=== PATIENT | female | born 1955 | race American Indian/Alaskan Native ===

== ENCOUNTER 2017-06-06 10:14 | Day surgery (SDC) | payer MEDICARE ==
[2017-06-05 11:58] VITALS: BMI 30.2
[2017-06-06] MEDS ORDERED: Lidocaine/Epinephrine 1% 1:100000 10 ML IJ ONE (12:57)
[2017-06-06] MEDS ORDERED: Propofol 10 mg/ml Inj (20 ML) ONE (13:04)
[2017-06-06] MEDS ORDERED: Silver Nitrate Topical - Stick ONE (13:09)
[2017-06-06] MEDS ORDERED: Lidocaine Hydrochloride 5 ML INJ ONE (14:00)
[2017-06-06] MEDS ORDERED: Oxycodone/Acetaminophen 5/325 mg Tab PO PRN (15:47)
[2017-06-06 15:53] VITALS: RESP 16
[2017-06-06 17:04] VITALS: BP 120/60; PULSE 70; TEMP 98; O2SAT 98
--- NOTE | 2017-06-07 00:02 | OP ---
PROCEDURE DATE: PREOPERATIVE DIAGNOSIS: Low-grade cervical dysplasia found on endocervical curettage during colposcopy. POSTOPERATIVE DIAGNOSIS: Low-grade cervical dysplasia found on endocervical curettage during colposcopy. PROCEDURE: Loop electrosurgical excision procedure cone biopsy. SURGEON: Cally Osborn MD TYPE OF ANESTHESIA: General. ANESTHESIA ADMINISTERED BY: Dr. Johnson. COMPLICATIONS: None. ESTIMATED BLOOD LOSS: Less than 5 mL. URINE OUTPUT: 200 mL. SPECIMENS: To Pathology. 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 INDICATION: The patient is a 62-year-old female who had presented for routine RENAL MEDICINE SPECIALIST visit. Pap smear was abnormal and colposcopic biopsy showed a endocervical curettage with low-grade squamous cervical dysplasia of scant squamous cells. The colposcopic biopsy showed acute and chronic cervicitis. An informed indications for treatment and risk of no treatment versus treatment discussed with the patient and she desired planned procedure. An informed consent was obtained for the LEEP cone biopsy. DESCRIPTION OF PROCEDURE: The patient was taken back to the OR where she was placed in the dorsal supine position and underwent a general anesthesia. She was then placed in the dorsal lithotomy position and an examine under anesthesia showed the uterus to be small and mobile. No pelvic masses palpated. The patient was then prepped and draped in the routine sterile fashion. A graves speculum was placed into the vagina and a grossly normal cervix and vagina were noted with findings consistent with genitourinary syndrome. The squamocolumnar junction was not visualized and appeared to be at or within the endocervical canal. A solution of 1% lidocaine with dilute epinephrine was injected submucosally into the area of the ectocervix at 6 o'clock, 9 o'clock, 12 o'clock, and 3 o'clock. The electrosurgical generator was set to 40 olson on blend. This was followed by the LEEP procedure of the ectocervix followed by the endocervix. Good hemostasis was achieved and the cervix was then coagulated with the ball cautery by placement of Monsel solution. The patient tolerated the procedure well and she returned to recovery room in satisfactory condition. Cally Osborn MD [facility]
== END 2017-06-06 16:35 | disposition home or self-care (01) ==
LOC: C.SDS 10:14
PROVIDERS: ATTEND Obstetrics & Gynecology
DX: N87.9 Dysplasia of cervix uteri, unspecified (principal); N72 Inflammatory disease of cervix uteri
CPT/HCPCS: 57522; 82948; J2704; J3010

== ENCOUNTER 2017-09-27 11:19 | Observation (INO) | payer MEDICARE ==
[2017-09-27 11:20] VITALS: BMI 27.3
--- NOTE | 2017-09-27 14:06 | C.PDOC ---
History Of Present Illness 62 y/o female presents to the ED for evaluation of left eye visual disturbance associated with intermittent headaches. Of note patient is a poor historian, and was seen at [facility] 2 days ago. She states she was supposed to be admitted for an MRI to address questionable neurological pathology. Patient signed out AMA and is now requesting to have the MRI/admission here. Denies headache at this time. Also denies any chest pain, SOB, nausea, vomiting, fever, or other complaints. PMD: Pedro Gaytan Time Seen by Provider: 09/27/17 12:42 Chief Complaint (Nursing): Eye Problem History Per: Patient History/Exam Limitations: no limitations Onset/Duration Of Symptoms: Intermittent Episodes Current Symptoms Are (Timing): Still Present Past Medical History Reviewed: Historical Data, Nursing Documentation, Vital Signs Vital Signs: Last Vital Signs Temp 98.8 F 09/28/17 08:44 Pulse 70 09/28/17 08:44 Resp 20 09/28/17 08:44 BP 127/83 09/28/17 08:44 Pulse Ox 98 09/28/17 08:44 - Medical History PMH: Arthritis, HTN, Chronic Kidney Disease Surgical History: Endoscopy Family History: States: Unknown Family Hx - Social History Hx Alcohol Use: No Hx Substance Use: No - Immunization History Hx Tetanus Toxoid Vaccination: No Hx Influenza Vaccination: Yes Hx Pneumococcal Vaccination: No Review Of Systems Except As Marked, All Systems Reviewed And Found Negative. Eyes: Positive for: Vision Change Neurological: Positive for: Headache Physical Exam - Physical Exam Appears: Non-toxic, No Acute Distress Skin: Normal Color, Warm, Dry Head: Atraumatic, Normacephalic Eye(s): bilateral: Normal Inspection (fundoscopic exam is normal bilaterally, no gross abnormality), PERRL, EOMI Nose: Normal Oral Mucosa: Moist Neck: Normal ROM, Supple Cardiovascular: Rhythm Regular, No Murmur Respiratory: Normal Breath Sounds, No Rales, No Rhonchi, No Wheezing Back: Normal Inspection, No Vertebral Tenderness Extremity: Bilateral: Atraumatic, Normal Color And Temperature, Normal ROM Pulses: Left Dorsalis Pedis: Normal, Right Dorsalis Pedis: Normal Neurological/Psych: Oriented x3, Normal Speech, Normal Cranial Nerves, Normal Motor, Normal Sensation, Other (No focal deficits) Gait: Steady ED Course And Treatment - Laboratory Results Result Diagrams: 09/28/17 07:40 09/28/17 07:40 O2 Sat by Pulse Oximetry: 97 (RA) Pulse Ox Interpretation: Normal - CT Scan/US MRI Brain Other Rad Studies (CT/US): Read By Radiologist, Radiology Report Reviewed CT/US Interpretation: Accession No. : [id number]. Patient Name / ID : INES MARTIN / [id number]. Exam Date : 09/27/2017 15:32:26 ( Approved ). Study Comment : Sex / Age : F / [id number]. Creator : Christa Sevilla. Dictator : Nelia Jones MD. Tortilla Maker : Molder Trimmer : Nelia Jones MD. Approver2 : Report Date : 09/27/2017 15:48:15. My Comment : . PROCEDURE: MRI BRAIN WITHOUT CONTRAST. HISTORY: visual disturbance. COMPARISON: 06/16/2016. TECHNIQUE: Multiplanar, multisequence MR images of the brain were obtained without intravenous contrast enhancement. FINDINGS: HEMORRHAGE: None. DWI: No evidence of an acute or early subacute infarction. BRAIN PARENCHYMA: There are mild chronic microangiopathic changes. There is no mass, mass effect or abnormal extra-axial fluid collection. The midline sagittal structures are normal. VENTRICLES: There is mild age-related global parenchymal volume loss and proportionate enlargement of the ventricles and cortical sulci. CRANIUM: There is normal bone marrow signal. ORBITS: Grossly unremarkable. PARANASAL SINUSES/MASTOIDS: Pattern predominantly clear. VASCULAR SYSTEM: There are normal signal voids in the larger intracranial arteries. OTHER FINDINGS: None. IMPRESSION: No acute intracranial abnormality. Mild chronic microangiopathic changes and mild age-related global parenchymal volume loss. Medical Decision Making Medical Decision Making: Case discussed w/ Dr. Gaytan, who requests patient be admitted to his service with neuro and ophthalmologic consults. Impression: Visual disturbance Plan: * CBC * CMP * Troponin I * EKG * MRI Brain w/o contrast * Pt signed consent to have [facility] records sent. Labs reviewed: (+) trop EKG: NSR at 66 bpm, with R BBB, Q wave in lead 3 and aVF Unchanged from EKG on 07/29 Disposition Discussed With : Pedro Gaytan Doctor Will See Patient In The: Hospital Counseled Patient/Family Regarding: Studies Performed, Diagnosis - Disposition Disposition: HOSPITALIZED Disposition Time: 14:06 Condition: FAIR - POA Present On Arrival: None - Clinical Impression Clinical Impression: Visual disturbance, NSTEMI (non-ST elevated myocardial infarction) - Scribe Statement The provider has reviewed the documentation as recorded by the Scribe (Sandrita Reddy) Provider Attestation: All medical record entries made by the Scribe were at my direction and personally dictated by me. I have reviewed the chart and agree that the record accurately reflects my personal performance of the history, physical exam, medical decision making, and the department course for this patient. I have also personally directed, reviewed, and agree with the discharge instructions and disposition.
[2017-09-27 14:26] LABS: BASO % 0.5 % (0.0-2.0); EOS % 0.5 % (0.0-4.0); HEMOGLOBIN 10.1 g/dL (11.0-16.0); LYMPH % 34.9 % (20.0-40.0); MEAN CELL VOLUME 78.8 fL (81.0-99.0); MEAN CORPUSCULAR HEMOGLOBIN 25.8 pg (27.0-31.0); MEAN CORPUSCULAR HGB CONC 32.8 g/dL (33.0-37.0); MEAN PLATELET VOLUME 7.1 fL (7.2-11.7); MONO # 0.6 K/uL (0.0-0.8); MONO % 10.4 % (0.0-10.0); NEUT # 3.1 K/uL (1.8-7.0); NEUT % 53.7 % (50.0-75.0); RBC 3.9 Mil/uL (3.80-5.20); RED CELL DISTRIBUTION WIDTH 14.7 % (11.5-14.5); WHITE BLOOD COUNT 5.8 K/uL (4.8-10.8)
[2017-09-27 14:45] LABS: ALB/GLOB RATIO 1.1 (1.0-2.1); ALBUMIN 4.3 g/dL (3.5-5.0); ALT/SGPT 10 U/L (9-52); AST/SGOT 27 U/L (14-36); BLOOD UREA NITROGEN 9 mg/dL (7-17); CALCIUM 8.7 mg/dl (8.6-10.4); GFR AFRICAN-AMERICAN > 60; GFR NON-AFRICAN AMERICAN > 60
--- NOTE | 2017-09-27 16:02 | MRI ---
PROCEDURE: MRI BRAIN WITHOUT CONTRAST HISTORY: visual disturbance COMPARISON: 06/16/2016. TECHNIQUE: Multiplanar, multisequence MR images of the brain were obtained without intravenous contrast enhancement. FINDINGS: HEMORRHAGE: None DWI: No evidence of an acute or early subacute infarction. BRAIN PARENCHYMA: There are mild chronic microangiopathic changes. There is no mass, mass effect or abnormal extra-axial fluid collection. The midline sagittal structures are normal. VENTRICLES: There is mild age-related global parenchymal volume loss and proportionate enlargement of the ventricles and cortical sulci. CRANIUM: There is normal bone marrow signal. ORBITS: Grossly unremarkable. PARANASAL SINUSES/MASTOIDS: Pattern predominantly clear. VASCULAR SYSTEM: There are normal signal voids in the larger intracranial arteries. OTHER FINDINGS: None. IMPRESSION: No acute intracranial abnormality. Mild chronic microangiopathic changes and mild age-related global parenchymal volume loss.
--- NOTE | 2017-09-27 16:36 | CP.PCM.PN ---
Subjective - Date & Time of Evaluation Date of Evaluation: 09/27/17 Time of Evaluation: 16:29 - Subjective Subjective: PGY-[address] Gaytan's Service: Pt seen and examined at bedside in Fast Track Bed 2. Patient states she still sees "same purple spot in left visual field." She denies headache at this time. Patient admits she had substernal "burning" chest pain "two weeks ago" that went away "a day later and has not returned." Patient reports she has noticed increased swelling in her legs over past few days, but denies sleeping with increased pillows/decreased exertion tolerance. She denies facial droop, weakness, slurred speech, syncope, falls, chest pain, SOB, palpitations, or abdominial pain. Patient is a 62 year old female, with PMHX of Cervical CA, Glaucoma, T2DM, MARA, Hepatitis C, OA/RA, Sarcoidosis, presenting for visual disturbance. Patient reports last monday she noticed "purple spot" in corner of vision of left eye. Pt pursued work [place] [facility]. Reports getting CT head and labwork (which pt says [facility] told her was inconclusive). She was told to stay overnight and have MRI monday morning but left AMA. Patient reports she has persistently seen this purple spot this week and now wants the MRI. She denies facial droop, weakness, slurred speech, syncope, falls, chest pain, SOB, palpitations, or abdominial pain. 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 She states she had cardiac catheterization 5 years ago. PMHX: as above PSHx: Colposcopy? (2018), Hx gastric bypass Fam Hx: denies Allergies: honey/sulfa antibiotics (rash) SHx: denies tobacco, occasional EtOH, denies illicit drugs Objective - Vital Signs/Intake and Output Vital Signs (last 24 hours): Temp Pulse Resp BP Pulse Ox 98.7 F 67 16 121/78 97 09/27/17 13:19 09/27/17 16:04 09/27/17 16:04 09/27/17 16:04 09/27/17 16:20 - Labs Labs: 09/27/17 14:20 09/27/17 14:20 - Constitutional Appears: Non-toxic, No Acute Distress, Older Than Stated Age - Head Exam Head Exam: ATRAUMATIC, NORMAL INSPECTION - Eye Exam Eye Exam: EOMI, Normal appearance, Nystagmus (right lateral gaze), PERRL - ENT Exam ENT Exam: Normal Exam - Neck Exam Neck Exam: Normal Inspection - Respiratory Exam Respiratory Exam: Clear to Ausculation Bilateral, NORMAL BREATHING PATTERN - Cardiovascular Exam Cardiovascular Exam: REGULAR RHYTHM, +S1, +S2. absent: Murmur - GI/Abdominal Exam GI & Abdominal Exam: Soft, Normal Bowel Sounds. absent: Tenderness - Extremities Exam Extremities Exam: Normal Capillary Refill, Pedal Edema (1+ pitting) - Back Exam Back Exam: absent: CVA tenderness (L), CVA tenderness (R) - Neurological Exam Neurological Exam: Alert, Awake, Oriented x3 Neuro motor strength exam: Left Upper Extremity: 5, Right Upper Extremity: 5, Left Lower Extremity: 5, Right Lower Extremity: 5 Additional comments: No facial droop, slurred speech Negative Romberg Light touch intact globally - Psychiatric Exam Psychiatric exam: Normal Mood - Skin Skin Exam: Dry, Intact, Warm Assessment and Plan - Assessment and Plan (Free Text) Plan: Elevated troponins Admit to tele Initial troponin 0.1350 - f/u two additional Q6H EKG (09/27/17): Unchanged from prior - NSR @ 66 bpm, RBBB, ST segment depression in lead II, Q waves in III/AVF - f/u two additional EKGs Dr. Garcia, tour consultant, help greatly appreciated - No anticoagulation at this time due to concern of CVA - Antiplatelets - ASA/Plavix - f/u additional reccs ASA 325g PO once in ED -ASA 81mg PO Daily Plavix 75mg PO Daily Losartan 100mg PO Daily Consider adding BB f/u BNP, two additional ROMIs/EKGs, ECHO Visual disturbance/? Occipital hyperdensity Pt worked up [place] [facility] [place] (09/24/17) - left AMA Fall risk protocol Brain MRI (09/27/17): No acute intracranial abnormality. Mild chronic microangiopathic changes and mild-age related global parenchymal volume loss. Dr. Garcia, Neurology managed services consultant - Conferred with Radiologist, Dr. Villegas, possible occipital venous stasis - start ASA 81mg PO daily - f/u repeat MRI brain, MRA/MRV Brain/Head/Neck - f/u Lipid panel, HbA1c, B12, folate, TSH, Vitamin D level, AYANNA level, Hypercoagulable work-up Pitting B/l leg edema Albumin WNL f/u BNP, ECHO T2DM Accuchecks ACHS Hypoglycemia protocol Metformin 500mg PO Daily MISS f/u A1C Continue home Losartan 100mg PO Daily Start Crestor 10mg PO HS HTN well controlled Losartan 100mg PO Daily Norvasc 10mg PO daily Sarcoidosis Continue Prednisone 10mg PO Daily - pt states she has adrenal insufficiency because she "has been on for years" Hx of Hep C AST/ALT WNL Unclear if patient treated f/u hepatitis panel Cervical CA Diagnosed 2018 Patient reports having recent procedure for removal of part of cervix Chronic Pain - Spinal stenosis Fentanyl 75mg TD Patch Q72H Percocet Colace 100mg PO BID Anxiety Xanax 0.25mg PO Q6H for anxiety Obesity Low fat, 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 Gaytan
[2017-09-27] MEDS ORDERED: Oxycodone/Acetaminophen 5/325 mg Tab PO PRN (17:30)
[2017-09-27] MEDS ORDERED: Dextrose 50% SYRINGE Inj (50 ml) IV PRN (17:55)
[2017-09-27] MEDS ORDERED: Glucagon Recombinant 1 mg Inj IM PRN (17:55)
--- NOTE | 2017-09-27 18:09 | CP.PCM.CON ---
History of Present Illness - History of Present Illness History of Present Illness: Mrs. Zhang is a 62-year-old woman with a past medical history of cervical cancer, morbid obesity s/p gastric bypass, sarcoidosis, DM, migratory thrombophlebitis, who states that for the past several days she has noticed a right eye upper visual quadrant loss of vision and right facial strange sensation. MRI of the brain was done and there was a subtle right occipital hyperintensity that could be an area of venous stasis. Review of Systems - Review of Systems All systems: reviewed and no additional remarkable complaints except Past Patient History - Past Medical History & Family History Past Medical History?: Yes - Past Social History Smoking Status: Never Smoked - CARDIAC Hx Hypertension: Yes - PULMONARY Hx Respiratory Disorders: Yes Other/Comment: HX: SARCOIDOSIS - HEENT Hx HEENT Problems: Yes Hx Glaucoma: Yes ("BEGINNING STAGES") - RENAL Hx Chronic Kidney Disease: Yes - ENDOCRINE/METABOLIC Hx Endocrine Disorders: Yes Hx Diabetes Mellitus Type 2: Yes - HEMATOLOGICAL/ONCOLOGICAL Hx Blood Disorders: Yes Hx Cancer: Yes (HX: ABNORMAL PAP-?CERVICAL CANCER) - MUSCULOSKELETAL/RHEUMATOLOGICAL Hx Arthritis: Yes - GASTROINTESTINAL Hx Gastrointestinal Disorders: Yes Other/Comment: HX: GASTRIC BYPASS. HX: LBM-POST GASTRIC BYPASS - GENITOURINARY/GYNECOLOGICAL Hx Genitourinary Disorders: Yes Hx Cervical Cancer: Yes (2018) Other/Comment: HX: ABNORMAL PAP - PSYCHIATRIC Hx Substance Use: No - SURGICAL HISTORY Hx Surgeries: Yes Hx Gastric Bypass Surgery: Yes Other/Comment: HX: ETOPIC [id number] REMOVED. HX: RIGHT OVARIAN CYST- CYST REMOVED. - ANESTHESIA Hx Anesthesia: Yes Hx Anesthesia Reactions: No Hx Malignant Hyperthermia: No Meds Allergies/Adverse Reactions: Allergies Allergy/AdvReac Type Severity Reaction Status Date / Time honey Allergy Severe ANAPHYLAXIS Verified 09/27/17 11:44 Sulfa (Sulfonamide Allergy Severe ANAPHYLAXIS Verified 09/27/17 11:47 Antibiotics) - Medications Medications: Current Medications Alprazolam (Xanax) 0.25 mg PO Q6H PRN PRN Reason: Anxiety Stop: 10/04/17 20:01 Amlodipine Besylate (Norvasc) 10 mg PO DAILY [facility] Aspirin (Ecotrin) 81 mg PO DAILY [facility] Dextrose (Dextrose 50% Inj) 0 ml IV STAT PRN; Protocol PRN Reason: Hypoglycemia Protocol Dextrose (Glutose 15) 0 gm PO ONCE PRN; Protocol PRN Reason: Hypoglycemia Protocol Fentanyl (Duragesic) 1 patch TD Q72 [facility] Glucagon (Glucagen Diagnostic Kit) 0 mg IM STAT PRN; Protocol PRN Reason: Hypoglycemia Protocol Home Med (Acetaminophen/Oxycodone Hydr [Percocet 10/325 Mg Tab]) 1 tab PO Q6 PRN PRN Reason: Pain, moderate (4-7) Dextrose (Dextrose 5% In Water 1000 Ml) 1,000 mls @ 0 mls/hr IV .Q0M PRN; Protocol; Per Protocol PRN Reason: Hypoglycemia Protocol Insulin Human Regular (Novolin R) 0 unit SC ACHS [facility] PRN Reason: Protocol Losartan Potassium (Cozaar) 100 mg PO DAILY [facility] Metformin HCl (Glucophage) 500 mg PO DAILY [facility] Prednisone (Prednisone Tab) 10 mg PO HS [facility] Physical Exam - Neurological Exam Neurological exam: Abnormal Gait, Alert, CN II-XII Intact, Oriented x3, Reflexes Normal Additional comments: Nystagmus on right lateral gaze. Results - Vital Signs Recent Vital Signs: Last Vital Signs Temp 98.7 F 09/27/17 13:19 Pulse 67 09/27/17 17:26 Resp 16 09/27/17 17:26 BP 142/70 09/27/17 17:26 Pulse Ox 100 09/27/17 17:26 - Labs Result Diagrams: 09/27/17 14:20 09/27/17 14:20 Labs: Laboratory Results - last 24 hr 09/27/17 09/27/17 14:20 14:20 WBC 5.8 RBC 3.90 Hgb 10.1 L Hct 30.7 L MCV 78.8 L MCH 25.8 L MCHC 32.8 L RDW 14.7 H Plt Count 214 MPV 7.1 L Neut % (Auto) 53.7 Lymph % (Auto) 34.9 Motley % (Auto) 10.4 H Eos % (Auto) 0.5 Baso % (Auto) 0.5 Neut # (Auto) 3.1 Lymph # (Auto) 2.0 Motley # (Auto) 0.6 Eos # (Auto) 0.0 Baso # (Auto) 0.0 Sodium 141 Potassium 3.8 Chloride 101 Carbon Dioxide 29 Anion Gap 15 BUN 9 Creatinine 0.7 Est GFR ( Amer) > 60 Est GFR (Non-Af Amer) > 60 Random Glucose 78 Calcium 8.7 Total Bilirubin 0.6 AST 27 ALT 10 Alkaline Phosphatase 58 Troponin I 0.1350 H* Total Protein 8.2 Albumin 4.3 Globulin 3.9 Albumin/Globulin Ratio 1.1 Assessment & Plan - Assessment and Plan (Free Text) Assessment: Visual field deficit of right eye could be due to retinal artery involvement. The lesion on the MRI could be due to either a stroke or a venous thrombus. She may be hypercoagulable due to recent cervical cancer and surgery. She also has a history of sarcoid and takes chronic steroids, which increase risk of stroke along with diabetes. Plan: I recommend obtaining a repeat MRI and an MRA/MRV for further evaluation. In the mean time, we will start her on aspirin 81 mg daily. Furthermore, I recommend the followin. Telemetry 2. Echocardiogram 3. Hypercoagulable work-up 4. Lipid panel, HbA1c, B12, folate, TSH, Vitamin D level, AYANNA level 5. PT/OT eval and treat Thank you.
[2017-09-27 19:29] VITALS: RESP 20
[2017-09-27] MEDS ORDERED: Oxycodone/Acetaminophen 5/325 mg Tab ONE (19:54)
[2017-09-27 22:09] LABS: CK-MB 0.76 ng/mL (0.0-3.38); TROPONIN I 0.111 ng/mL (0.00-0.120)
[2017-09-27] MEDS: (Novolin R) Insulin Human Regular 100 units/ml vial SC SCH (22:19)
[2017-09-28] MEDS: Oxycodone/Acetaminophen 5/325 mg Tab PO PRN ×2 (01:21→07:01)
[2017-09-28] MEDS: oxyCODONE 5 mg Immediate Release Tab PO PRN ×2 (01:21→07:00)
[2017-09-28 02:30] LABS: CK-MB 0.81 ng/mL (0.0-3.38); TROPONIN I 0.107 ng/mL (0.00-0.120)
[2017-09-28] MEDS ORDERED: Magnesium Sulfate 1 gm in D5W 1 GM/100 ML BAG IVPB SCH ×2 (07:45→08:45)
--- NOTE | 2017-09-28 07:50 | CP.PCM.PN ---
Subjective - Date & Time of Evaluation Date of Evaluation: 09/28/17 Time of Evaluation: 07:46 - Subjective Subjective: Ms. Zhong was seen and examined at the bedside. She is alert, oriented in all spheres. She claims of headache in her right periorbital area radiating to the temporal area, pain is describe as throbbing with pain scale 6/10. She further claims of having a blank or blurry area in her right upper quadrant of her eye. She claims of clear vision with eye movement to the right periphery. She denies any dizziness, lightheadedness, nausea, or vomiting. She is able to follow simple commands. She request of an anxiolytic prior to MRI. There was no untoward events overnight. Objective - Vital Signs/Intake and Output Vital Signs (last 24 hours): Temp Pulse Resp BP Pulse Ox 98.5 F 67 20 137/72 97 09/28/17 04:10 09/28/17 04:10 09/28/17 04:10 09/28/17 04:10 09/28/17 04:10 - Medications Medications: Current Medications Alprazolam (Xanax) 0.25 mg PO Q6H PRN PRN Reason: Anxiety Stop: 10/04/17 20:01 Amlodipine Besylate (Norvasc) 10 mg PO DAILY [facility] Aspirin (Ecotrin) 81 mg PO DAILY [facility] Calcium/Vitamin D (Oyster Shell Calcium/Vitamin D 500 Mg-200 Iu) 1 tab PO DAILY [facility] Dextrose (Dextrose 50% Inj) 0 ml IV STAT PRN; Protocol PRN Reason: Hypoglycemia Protocol Dextrose (Glutose 15) 0 gm PO ONCE PRN; Protocol PRN Reason: Hypoglycemia Protocol Docusate Sodium (Colace) 100 mg PO BID [facility] Fentanyl (Duragesic) 1 patch TD Q72 [facility] Glucagon (Glucagen Diagnostic Kit) 0 mg IM STAT PRN; Protocol PRN Reason: Hypoglycemia Protocol Dextrose (Dextrose 5% In Water 1000 Ml) 1,000 mls @ 0 mls/hr IV .Q0M PRN; Protocol; Per Protocol PRN Reason: Hypoglycemia Protocol Magnesium Sulfate/Dextrose (Magnesium Sulfate 1 Gm/100 Ml D5w) 1 gm in 100 mls @ 300 mls/hr IVPB Q30M [facility] Stop: 09/28/17 08:34 Insulin Human Regular (Novolin R) 0 unit SC ACHS [facility] PRN Reason: Protocol Last Admin: 09/27/17 22:19 Dose: Not Given Losartan Potassium (Cozaar) 100 mg PO DAILY [facility] Metformin HCl (Glucophage) 500 mg PO DAILY [facility] Oxycodone HCl (Oxycodone Immediate Release Tab) 5 mg PO Q6 PRN PRN Reason: Pain, moderate (4-7) Last Admin: 09/28/17 07:00 Dose: 5 mg Oxycodone/Acetaminophen (Percocet 5/325 Mg Tab) 1 tab PO Q6 PRN PRN Reason: Pain, moderate (4-7) Last Admin: 09/28/17 07:01 Dose: 1 tab Prednisone (Prednisone Tab) 10 mg PO HS [facility] Last Admin: 09/27/17 23:05 Dose: 10 mg Rosuvastatin Calcium (Crestor) 10 mg PO HS [facility] Last Admin: 09/27/17 23:05 Dose: 10 mg - Labs Labs: 09/27/17 14:20 09/27/17 14:20 - Constitutional Appears: No Acute Distress - Eye Exam Pupil Exam: PERRL - Neurological Exam Neurological Exam: Alert, Awake, Oriented x3 Neuro motor strength exam: Left Upper Extremity: 5, Right Upper Extremity: 5, Left Lower Extremity: 5, Right Lower Extremity: 5 Additional comments: Alert, oriented, follows commands. She further claims of having a blank or blurry area in her right upper quadrant of her eye. She claims of clear vision with eye movement to the right periphery. Assessment and Plan (1) Visual disturbance Assessment & Plan: Case discussed with Dr. Garcia, continue all current medical regimen. Pending MRa / MRV of the head and neck, echocardiogram, hypercoagulability studies. Recommend head of bed elevated, normotension to maintain brain perfusion. Status: Acute (2) Headache Assessment & Plan: Case discussed with Dr. Garcia, recommend magnesium 2 gms IVPB for one dose only. This is for headache not to supplement magnesium level. Status: Acute
[2017-09-28 08:02] LABS: BASO % 0.3 % (0.0-2.0); EOS % 0.1 % (0.0-4.0); HEMOGLOBIN 9.9 g/dL (11.0-16.0); LYMPH # 1.1 K/uL (1.0-4.3); LYMPH % 22.4 % (20.0-40.0); MEAN CELL VOLUME 78.1 fL (81.0-99.0); MEAN CORPUSCULAR HEMOGLOBIN 25.8 pg (27.0-31.0); MEAN PLATELET VOLUME 7.5 fL (7.2-11.7); MONO # 0.3 K/uL (0.0-0.8); MONO % 6.8 % (0.0-10.0); NEUT # 3.4 K/uL (1.8-7.0); NEUT % 70.4 % (50.0-75.0); RBC 3.84 Mil/uL (3.80-5.20); RED CELL DISTRIBUTION WIDTH 14.5 % (11.5-14.5); WHITE BLOOD COUNT 4.8 K/uL (4.8-10.8)
[2017-09-28] MEDS: (Novolin R) Insulin Human Regular 100 units/ml vial SC SCH ×2 (08:03→11:55)
[2017-09-28 08:07] LABS: INR 1.1; PROTHROMBIN TIME 11.7 SECONDS (9.7-12.2)
[2017-09-28 08:20] LABS: ALB/GLOB RATIO 1.1 (1.0-2.1); ALBUMIN 3.9 g/dL (3.5-5.0); ALT/SGPT 14 U/L (9-52); AST/SGOT 28 U/L (14-36); BLOOD UREA NITROGEN 10 mg/dL (7-17); CALCIUM 8.8 mg/dl (8.6-10.4); GFR AFRICAN-AMERICAN > 60; GFR NON-AFRICAN AMERICAN > 60; HDL CHOLESTEROL 70 mg/dL (30-70)
[2017-09-28 08:22] LABS: LDL CHOLESTEROL 45 mg/dL (0-129)
[2017-09-28 08:39] LABS: HEPATITIS B SURFACE AG Negative (NEGATIVE)
[2017-09-28 08:45] LABS: HEPATITIS A IGM NEGATIVE (NEGATIVE); HEPATITIS B CORE AB NEGATIVE (NEGATIVE)
[2017-09-28 08:48] VITALS: TEMP 98.8
[2017-09-28 09:28] LABS: FOLATE 11.6 ng/mL
[2017-09-28] MEDS ORDERED: Calcium-Vit D 500 mg-200 Units Tab UD PO SCH (10:00)
[2017-09-28 10:23] VITALS: O2SAT 97
--- NOTE | 2017-09-28 11:06 | CP.PCM.CON ---
History of Present Illness - History of Present Illness History of Present Illness: I was asked t see patient by Dr Gaytan. Patient is a 62 year old female with PMH HTN, CAD, hypercholesterolemia who presents with visual disturbances. The patient has noted decrease in visual acuity of the right eye and a visual field defect. She was initally admitted to [facility] but signed out. She has had persistent symtpoms and a headache. She is referred for furtehr evaluation. Initial cardiac enzyme is negative. Review of Systems - Constitutional Constitutional: absent: As Per HPI, Anorexia, Chills, Daytime Sleepiness, Excessive Sweating, Fatigue, Fever, Frequent Falls, Headache, Increased Appetite , Lethargy, Malaise, Night Sweats, Snoring, Sleep Apnea, Weight Gain, Weight Loss, Weakness, Other - EENT Eyes: Loss of Peripheral Vision, Spots in Vision Ears: absent: As Per HPI, Decreased Hearing, Ear Discharge, Ear Pain, Tinnitus, Abnormal Hearing, Disequilibrium, Dizziness, Other Nose/Mouth/Throat: absent: As Per HPI, Epistaxis, Nasal Congestion, Nasal Discharge, Nasal Obstruction, Nasal Trauma, Nose Pain, Post Nasal Drip, Sinus Pain, Sinus Pressure, Bleeding Gums, Change in Voice, Dental Pain, Dry Mouth, Dysphagia, Halitosis, Hoarsness, Lip Swelling, Mouth Lesions, Mouth Pain, Odynophagia, Sore Throat, Throat Swelling, Tongue Swelling, Facial Pain, Neck Pain, Neck Mass, Other - Cardiovascular Cardiovascular: Dyspnea - Respiratory Respiratory: absent: As Per HPI, Cough, Dyspnea, Hemoptysis, Dyspnea on Exertion , Wheezing, Snoring, Stridor, Pain on Inspiration, Chest Congestion, Excessive Mucous Production, Change in Mucous Color, Pain with Coughing, Other - Gastrointestinal Gastrointestinal: absent: As Per HPI, Abdominal Pain, Belching, Bloating, Change in Bowel Habits, Change in Stool Character, Coffee Ground Emesis, Constipation, Cramping, Diarrhea, Dyspepsia, Dysphagia, Early Satiety, Excessive Flatus, Fecal Incontinence, Heartburn, Hematemesis, Hematochezia, Loose Stools, Melena, Nausea, Odynophagia, Temesmus, Vomiting, Other - Genitourinary Genitourinary: absent: As Per HPI, Change in Urinary Stream, Difficulty Urinating, Dysuria, Flank Pain, Hematuria, Pyuria, Nocturia, Urinary Incontinence, Urinary Frequency, Urinary Hesitance, Urinary Urgency, Voiding Freq/Small Amts, Freq UTI, Hx Renal/Bladder Calculi, Hx /Renal Surgery, Bladder Distension, Other - Musculoskeletal Musculoskeletal: absent: As Per HPI, Abnormal Gait, Arthralgias, Atrophy, Back Pain, Deformity, Joint Swelling, Limited Range of Motion, Loss of Height, Muscle Cramps, Muscle Weakness, Myalgias, Neck Pain, Numbness, Radiating Pain into Limb, Stiffness, Tingling, Other - Integumentary Integumentary: absent: As Per HPI, Acne, Alopecia, Bleeding Lesions, Change in Hair, Change in Nails, Change in Pigmentation, Changing Lesions, Dry Skin, Erythema, Furuncle, Hirsutism, Lesions, New Lesions, Non-Healing Lesions, Photosensitivity, Pruritus, Rash, Skin Pain, Skin Ulcer, Sores, Striae, Swelling , Unusual Bruising, Wounds, Jaundice, Other - Neurological Neurological: absent: As Per HPI, Abnormal Gait, Abnormal Hearing, Abnormal Movements, Abnormal Speech, Behavioral Changes, Burning Sensations, Confusion, Convulsions, Disequilibrium, Dizziness, Numbness, Focal Weakness, Frequent Falls , Headaches, Lack of Coordination, Loss of Vision, Memory Loss, Paresthesias, Radicular Pain, Restless Legs, Sensory Deficit, Syncope, Tingling, Tremor, Vertigo, Weakness, Other Visual Disturbances, Other - Psychiatric Psychiatric: absent: As Per HPI, Abnormal Sleep Pattern, Anhedonia, Anxiety, Auditory Hallucinations, Behavioral Changes, Change in Appetite, Change in Libido, Confusion, Depression, Difficulty Concentrating, Hallucinations, Homicidal Ideation, Hopelessness, Irritability, Memory Loss, Mood Swings, Panic Attacks, Paranoia, Suicidal Ideation, Visual Hallucinations, Tactile Hallucinations, Other - Endocrine Endocrine: absent: As Per HPI, Change in Body Appearance, Change in Libido, Cold Intolorance, Deepening of Voice, Excessive Sweating, Fatigue, Flushing, Heat Intolorance, Increase in Ring/Shoe/Hat Size, Palpitations, Polydipsia, Polyphagia, Polyuria, Other - Hematologic/Lymphatic Hematologic: absent: As Per HPI, Easy Bleeding, Easy Bruising, Lymphadenopathy, Other Past Patient History - Past Medical History & Family History Past Medical History?: Yes - Past Social History Smoking Status: Never Smoked - CARDIAC Hx Hypertension: Yes - PULMONARY Hx Respiratory Disorders: Yes Other/Comment: HX: SARCOIDOSIS - HEENT Hx HEENT Problems: Yes Hx Glaucoma: Yes ("BEGINNING STAGES") - RENAL Hx Chronic Kidney Disease: Yes - ENDOCRINE/METABOLIC Hx Endocrine Disorders: Yes Hx Diabetes Mellitus Type 2: Yes - HEMATOLOGICAL/ONCOLOGICAL Hx Blood Disorders: Yes Hx Cancer: Yes (HX: ABNORMAL PAP-?CERVICAL CANCER) - MUSCULOSKELETAL/RHEUMATOLOGICAL Hx Arthritis: Yes - GASTROINTESTINAL Hx Gastrointestinal Disorders: Yes Other/Comment: HX: GASTRIC BYPASS. HX: LBM-POST GASTRIC BYPASS - GENITOURINARY/GYNECOLOGICAL Hx Genitourinary Disorders: Yes Hx Cervical Cancer: Yes (2018) Other/Comment: HX: ABNORMAL PAP - PSYCHIATRIC Hx Substance Use: No - SURGICAL HISTORY Hx Surgeries: Yes Hx Gastric Bypass Surgery: Yes Other/Comment: HX: ETOPIC [id number] REMOVED. HX: RIGHT OVARIAN CYST- CYST REMOVED. - ANESTHESIA Hx Anesthesia: Yes Hx Anesthesia Reactions: No Hx Malignant Hyperthermia: No Meds Allergies/Adverse Reactions: Allergies Allergy/AdvReac Type Severity Reaction Status Date / Time honey Allergy Severe ANAPHYLAXIS Verified 09/27/17 11:44 Sulfa (Sulfonamide Allergy Severe ANAPHYLAXIS Verified 09/27/17 11:47 Antibiotics) - Medications Medications: Current Medications Alprazolam (Xanax) 0.25 mg PO Q6H PRN PRN Reason: Anxiety Stop: 10/04/17 20:01 Last Admin: 09/28/17 09:11 Dose: 0.25 mg Amlodipine Besylate (Norvasc) 10 mg PO DAILY [facility] Aspirin (Ecotrin) 81 mg PO DAILY [facility] Calcium/Vitamin D (Oyster Shell Calcium/Vitamin D 500 Mg-200 Iu) 1 tab PO DAILY [facility] Dextrose (Dextrose 50% Inj) 0 ml IV STAT PRN; Protocol PRN Reason: Hypoglycemia Protocol Dextrose (Glutose 15) 0 gm PO ONCE PRN; Protocol PRN Reason: Hypoglycemia Protocol Docusate Sodium (Colace) 100 mg PO BID [facility] Fentanyl (Duragesic) 1 patch TD Q72 [facility] Glucagon (Glucagen Diagnostic Kit) 0 mg IM STAT PRN; Protocol PRN Reason: Hypoglycemia Protocol Dextrose (Dextrose 5% In Water 1000 Ml) 1,000 mls @ 0 mls/hr IV .Q0M PRN; Protocol; Per Protocol PRN Reason: Hypoglycemia Protocol Insulin Human Regular (Novolin R) 0 unit SC ACHS [facility] PRN Reason: Protocol Last Admin: 09/28/17 08:03 Dose: Not Given Losartan Potassium (Cozaar) 100 mg PO DAILY [facility] Metformin HCl (Glucophage) 500 mg PO DAILY [facility] Oxycodone HCl (Oxycodone Immediate Release Tab) 5 mg PO Q6 PRN PRN Reason: Pain, moderate (4-7) Last Admin: 09/28/17 07:00 Dose: 5 mg Oxycodone/Acetaminophen (Percocet 5/325 Mg Tab) 1 tab PO Q6 PRN PRN Reason: Pain, moderate (4-7) Last Admin: 09/28/17 07:01 Dose: 1 tab Prednisone (Prednisone Tab) 10 mg PO HS [facility] Last Admin: 09/27/17 23:05 Dose: 10 mg Rosuvastatin Calcium (Crestor) 10 mg PO [facility] Last Admin: 09/27/17 23:05 Dose: 10 mg Physical Exam - Constitutional Appears: Non-toxic - Head Exam Head Exam: NORMAL INSPECTION - Eye Exam Eye Exam: Normal appearance - ENT Exam ENT Exam: Mucous Membranes Moist - Neck Exam Neck exam: Positive for: Full Rom - Respiratory Exam Respiratory Exam: NORMAL BREATHING PATTERN - Cardiovascular Exam Cardiovascular Exam: REGULAR RHYTHM, Systolic Murmur - GI/Abdominal Exam GI & Abdominal Exam: Normal Bowel Sounds - Rectal Exam Rectal Exam: Deferred - Extremities Exam Extremities exam: Negative for: pedal edema - Back Exam Back exam: NORMAL INSPECTION - Neurological Exam Neurological exam: Alert - Psychiatric Exam Psychiatric exam: Normal Mood - Skin Skin Exam: Normal Color Results - Vital Signs Recent Vital Signs: Last Vital Signs Temp 98.8 F 09/28/17 08:44 Pulse 70 09/28/17 08:44 Resp 20 09/28/17 08:44 BP 127/83 09/28/17 08:44 Pulse Ox 97 09/28/17 10:24 - Labs Result Diagrams: 09/28/17 07:40 09/28/17 07:40 Labs: Laboratory Results - last 24 hr 09/27/17 09/27/17 09/27/17 14:20 14:20 14:20 WBC 5.8 RBC 3.90 Hgb 10.1 L Hct 30.7 L MCV 78.8 L MCH 25.8 L MCHC 32.8 L RDW 14.7 H Plt Count 214 MPV 7.1 L Neut % (Auto) 53.7 Lymph % (Auto) 34.9 Mccreary % (Auto) 10.4 H Eos % (Auto) 0.5 Baso % (Auto) 0.5 Neut # (Auto) 3.1 Lymph # (Auto) 2.0 Mccreary # (Auto) 0.6 Eos # (Auto) 0.0 Baso # (Auto) 0.0 PT INR APTT Sodium 141 Potassium 3.8 Chloride 101 Carbon Dioxide 29 Anion Gap 15 BUN 9 Creatinine 0.7 Est GFR ( Amer) > 60 Est GFR (Non-Af Amer) > 60 POC Glucose (mg/dL) Random Glucose 78 Calcium 8.7 Phosphorus Magnesium Total Bilirubin 0.6 AST 27 ALT 10 Alkaline Phosphatase 58 Total Creatine Kinase CK-MB (Mass) Troponin I 0.1350 H* NT-Pro-B Natriuret Pep 404 Total Protein 8.2 Albumin 4.3 Globulin 3.9 Albumin/Globulin Ratio 1.1 Triglycerides Cholesterol LDL Cholesterol Direct HDL Cholesterol Vitamin B12 25-OH Vitamin D Total Folate Free T4 TSH 3rd Generation Hepatitis A IgM Ab Hep Bs Antigen Hep Bs Antibody Hep B Core IgM Ab 09/27/17 09/27/17 09/27/17 18:09 20:54 21:39 WBC RBC Hgb Hct MCV MCH MCHC RDW Plt Count MPV Neut % (Auto) Lymph % (Auto) Mccreary % (Auto) Eos % (Auto) Baso % (Auto) Neut # (Auto) Lymph # (Auto) Mccreary # (Auto) Eos # (Auto) Baso # (Auto) PT INR APTT Sodium Potassium Chloride Carbon Dioxide Anion Gap BUN Creatinine Est GFR ( Amer) Est GFR (Non-Af Amer) POC Glucose (mg/dL) 118 H 164 H Random Glucose Calcium Phosphorus Magnesium Total Bilirubin AST ALT Alkaline Phosphatase Total Creatine Kinase 49 CK-MB (Mass) 0.76 Troponin I 0.1110 NT-Pro-B Natriuret Pep Total Protein Albumin Globulin Albumin/Globulin Ratio Triglycerides Cholesterol LDL Cholesterol Direct HDL Cholesterol Vitamin B12 25-OH Vitamin D Total Folate Free T4 TSH 3rd Generation Hepatitis A IgM Ab Hep Bs Antigen Hep Bs Antibody Hep B Core IgM Ab 09/28/17 09/28/17 09/28/17 02:02 06:41 07:40 WBC 4.8 RBC 3.84 Hgb 9.9 L Hct 30.0 L MCV 78.1 L MCH 25.8 L MCHC 33.0 RDW 14.5 Plt Count 227 MPV 7.5 Neut % (Auto) 70.4 Lymph % (Auto) 22.4 Mccreary % (Auto) 6.8 Eos % (Auto) 0.1 Baso % (Auto) 0.3 Neut # (Auto) 3.4 Lymph # (Auto) 1.1 Mccreary # (Auto) 0.3 Eos # (Auto) 0.0 Baso # (Auto) 0.0 PT INR APTT Sodium Potassium Chloride Carbon Dioxide Anion Gap BUN Creatinine Est GFR ( Amer) Est GFR (Non-Af Amer) POC Glucose (mg/dL) 124 H Random Glucose Calcium Phosphorus Magnesium Total Bilirubin AST ALT Alkaline Phosphatase Total Creatine Kinase 49 CK-MB (Mass) 0.81 Troponin I 0.1070 NT-Pro-B Natriuret Pep Total Protein Albumin Globulin Albumin/Globulin Ratio Triglycerides Cholesterol LDL Cholesterol Direct HDL Cholesterol Vitamin B12 25-OH Vitamin D Total Folate Free T4 TSH 3rd Generation Hepatitis A IgM Ab Hep Bs Antigen Hep Bs Antibody Hep B Core IgM Ab 09/28/17 09/28/17 09/28/17 07:40 07:40 07:40 WBC RBC Hgb Hct MCV MCH MCHC RDW Plt Count MPV Neut % (Auto) Lymph % (Auto) Mccreary % (Auto) Eos % (Auto) Baso % (Auto) Neut # (Auto) Lymph # (Auto) Mccreary # (Auto) Eos # (Auto) Baso # (Auto) PT INR APTT Sodium 141 Potassium 4.1 Chloride 104 Carbon Dioxide 30 Anion Gap 11 BUN 10 Creatinine 0.7 Est GFR ( Amer) > 60 Est GFR (Non-Af Amer) > 60 POC Glucose (mg/dL) Random Glucose 98 Calcium 8.8 Phosphorus 3.7 Magnesium 2.0 Total Bilirubin 0.5 AST 28 ALT 14 Alkaline Phosphatase 55 Total Creatine Kinase CK-MB (Mass) Troponin I NT-Pro-B Natriuret Pep Total Protein 7.6 Albumin 3.9 Globulin 3.6 Albumin/Globulin Ratio 1.1 Triglycerides 53 Cholesterol 137 LDL Cholesterol Direct 45 HDL Cholesterol 70 Vitamin B12 456 25-OH Vitamin D Total 30.5 Folate 11.6 Free T4 0.99 TSH 3rd Generation 0.71 Hepatitis A IgM Ab Hep Bs Antigen Hep Bs Antibody Hep B Core IgM Ab 09/28/17 09/28/17 09/28/17 07:40 07:40 07:40 WBC RBC Hgb Hct MCV MCH MCHC RDW Plt Count MPV Neut % (Auto) Lymph % (Auto) Mccreary % (Auto) Eos % (Auto) Baso % (Auto) Neut # (Auto) Lymph # (Auto) Mccreary # (Auto) Eos # (Auto) Baso # (Auto) PT 11.7 INR 1.1 APTT 28 Sodium Potassium Chloride Carbon Dioxide Anion Gap BUN Creatinine Est GFR ( Amer) Est GFR (Non-Af Amer) POC Glucose (mg/dL) Random Glucose Calcium Phosphorus Magnesium Total Bilirubin AST ALT Alkaline Phosphatase Total Creatine Kinase CK-MB (Mass) Troponin I NT-Pro-B Natriuret Pep Total Protein Albumin Globulin Albumin/Globulin Ratio Triglycerides Cholesterol LDL Cholesterol Direct HDL Cholesterol Vitamin B12 25-OH Vitamin D Total Folate Free T4 TSH 3rd Generation Hepatitis A IgM Ab Negative Hep Bs Antigen Negative Hep Bs Antibody Negative Hep B Core IgM Ab Negative - EKG Data EKG Interpreted by: Myself EKG shows normal: Sinus rhythm - EKG Data EKG Specific Queries [place]/QRS: RBBB Q Waves: II, III, AVF Assessment & Plan - Assessment and Plan (Free Text) Assessment: CVA: neurp eval. recommend ASA/Plavix HTN blood pressure control CAD inital troponin elevated, but has improved. will recommend antiplatelet therapy. no inidcation for heprarin at this time. recommend echocardiogram Hypercholesterolemia statin therapy - Date & Time Date: 09/28/17 Time: 09:00
[2017-09-28 11:13] LABS: HEPATITIS C ANTIBODY REACTIVE (NEGATIVE)
--- NOTE | 2017-09-28 12:32 | MRI ---
PROCEDURE: MRI BRAIN WITHOUT CONTRAST HISTORY: f/u possible occipital hyperdensity COMPARISON: MRI brain without contrast from 09/27/2017. TECHNIQUE: Multiplanar, multisequence MR images of the brain were obtained without intravenous contrast enhancement. FINDINGS: HEMORRHAGE: None DWI: There is a persistent linear hyperintense signal in the right posterior parietal sulcus/cortex white matter on diffusion-weighted imaging corresponding to linear hyperintensity in the subcortical white matter on ADC images. There is no discernible T2/FLAIR hyperintense signal corresponding to this abnormality. BRAIN PARENCHYMA: There are mild chronic microangiopathic changes. There is no mass, mass effect or abnormal extra-axial fluid collection. The midline sagittal structures are normal. VENTRICLES: There is mild age-related global parenchymal volume loss and proportionate enlargement of the ventricles and cortical sulci. CRANIUM: There is normal bone marrow signal pattern. ORBITS: Grossly unremarkable. PARANASAL SINUSES/MASTOIDS: Predominantly clear. VASCULAR SYSTEM: There are normal signal voids in the larger intracranial arteries. OTHER FINDINGS: None. IMPRESSION: 1. Persistent small linear hyperintensity in the right posterior parietal sulcus/ cortex with no corresponding decreased signal on ADC imaging to suggest restricted diffusion, no discernible corresponding T2/FLAIR signal abnormality or increased susceptibility on gradient images. This finding is strictly nonspecific, slow flow/ cortical venous thrombosis and ischemic focus are differential considerations. 2. No other significant interval change since the prior examination.
--- NOTE | 2017-09-28 12:42 | MRI ---
PROCEDURE: MR Venography of the Brain HISTORY: MRV per Dr. foster COMPARISON: None available. TECHNIQUE: 2D time of flight venography of the brain was performed. Rotating MIP images of the intracranial veins were generated. FINDINGS: SUPERFICIAL VEINS: Superior Sagittal Sinus: Patent. Inferior Sagittal Sinus:Patent. Transverse Sinuses: Patent. The right transverse sinus is hypoplastic, an anatomic variant. Sigmoid Sinuses:Patent. DEEP VEINS: Internal Cerebral Veins: Patent. Straight Sinus: Patent. IMPRESSION: Normal MR Venography of the Brain. No evidence of dural venous sinus thrombosis.
--- NOTE | 2017-09-28 12:48 | MRI ---
PROCEDURE: MR Angiography of the neck without contrast HISTORY: f/u possible occipital hyperdensity COMPARISON: None available. TECHNIQUE: 3D [id number] angiography of the neck was performed. Rotating maximum intensity projection images of the cervical carotid and vertebral arteries were generated. The origins of the common carotid arteries were not visualized, which is a limitation inherent to the non-contrast time of flight technique. FINDINGS: RIGHT CAROTID ARTERIES: Common Carotid Artery: Normal. Carotid Bifurcation: Normal. Internal Carotid Artery:Normal. External Carotid Artery (proximal branches): Normal. LEFT CAROTID ARTERIES: Common Carotid Artery: Normal. Carotid Bifurcation: Normal. Internal Carotid Artery:Normal. External Carotid Artery (proximal branches): Normal. VERTEBRAL ARTERIES: Right Vertebral Artery: Normal. Left Vertebral Artery: Normal. OTHER FINDINGS: None. IMPRESSION: Normal MR Angiography of the neck.
[2017-09-28 13:32] VITALS: BP 146/79
[2017-09-28 13:36] VITALS: PULSE 85
--- NOTE | 2017-09-28 14:19 | CP.PCM.PN ---
Subjective - Date & Time of Evaluation Date of Evaluation: 09/28/17 Time of Evaluation: 08:00 - Subjective Subjective: PGY [address] note for Dr[address] Gaytan: Patient was seen and examined at bedside this morning. She continues to complain at the blurry vision in her right eye that has not changed since yesterday/ She also stated she had a mild head ache earlier this morning which resolved. She was also complaining of chronic full body pain and was requesting more pain medications. She denies any dizziness, lightheadedness, nausea, or vomiting, chest pain, SOB. Objective - Vital Signs/Intake and Output Vital Signs (last 24 hours): Temp Pulse Resp BP Pulse Ox 98.8 F 85 20 146/79 97 09/28/17 08:44 09/28/17 12:12 09/28/17 08:44 09/28/17 11:00 09/28/17 10:24 - Medications Medications: Current Medications Alprazolam (Xanax) 0.25 mg PO Q6H PRN PRN Reason: Anxiety Stop: 10/04/17 20:01 Last Admin: 09/28/17 09:11 Dose: 0.25 mg Amlodipine Besylate (Norvasc) 10 mg PO DAILY [facility] Last Admin: 09/28/17 11:03 Dose: 10 mg Aspirin (Ecotrin) 81 mg PO DAILY [facility] Last Admin: 09/28/17 11:04 Dose: 81 mg Calcium/Vitamin D (Oyster Shell Calcium/Vitamin D 500 Mg-200 Iu) 1 tab PO DAILY [facility] Last Admin: 09/28/17 11:04 Dose: 1 tab Dextrose (Dextrose 50% Inj) 0 ml IV STAT PRN; Protocol PRN Reason: Hypoglycemia Protocol Dextrose (Glutose 15) 0 gm PO ONCE PRN; Protocol PRN Reason: Hypoglycemia Protocol Docusate Sodium (Colace) 100 mg PO BID [facility] Last Admin: 09/28/17 11:10 Dose: Not Given Fentanyl (Duragesic) 1 patch TD Q72 [facility] Glucagon (Glucagen Diagnostic Kit) 0 mg IM STAT PRN; Protocol PRN Reason: Hypoglycemia Protocol Dextrose (Dextrose 5% In Water 1000 Ml) 1,000 mls @ 0 mls/hr IV .Q0M PRN; Protocol; Per Protocol PRN Reason: Hypoglycemia Protocol Insulin Human Regular (Novolin R) 0 unit SC ACHS [facility] PRN Reason: Protocol Last Admin: 09/28/17 11:55 Dose: Not Given Losartan Potassium (Cozaar) 100 mg PO DAILY [facility] Last Admin: 09/28/17 11:03 Dose: 100 mg Metformin HCl (Glucophage) 500 mg PO DAILY [facility] Last Admin: 09/28/17 11:02 Dose: 500 mg Oxycodone HCl (Oxycodone Immediate Release Tab) 5 mg PO Q6 PRN PRN Reason: Pain, moderate (4-7) Last Admin: 09/28/17 07:00 Dose: 5 mg Oxycodone/Acetaminophen (Percocet 5/325 Mg Tab) 1 tab PO Q6 PRN PRN Reason: Pain, moderate (4-7) Last Admin: 09/28/17 07:01 Dose: 1 tab Prednisone (Prednisone Tab) 10 mg PO [facility] Last Admin: 09/27/17 23:05 Dose: 10 mg Rosuvastatin Calcium (Crestor) 10 mg PO [facility] Last Admin: 09/27/17 23:05 Dose: 10 mg - Labs Labs: 09/28/17 07:40 09/28/17 07:40 PT 11.7 SECONDS (9.7-12.2) 09/28/17 07:40 INR 1.1 09/28/17 07:40 APTT 28 SECONDS (21-34) 09/28/17 07:40 - Constitutional Appears: Non-toxic, No Acute Distress - Head Exam Head Exam: NORMAL INSPECTION - Eye Exam Eye Exam: EOMI, PERRL Pupil Exam: NORMAL ACCOMODATION - ENT Exam ENT Exam: Mucous Membranes Moist - Respiratory Exam Respiratory Exam: Clear to Ausculation Bilateral, NORMAL BREATHING PATTERN. absent: Respiratory Distress - Cardiovascular Exam Cardiovascular Exam: REGULAR RHYTHM, +S1, +S2 - GI/Abdominal Exam GI & Abdominal Exam: Soft, Normal Bowel Sounds. absent: Distended, Firm, Guarding, Tenderness - Extremities Exam Extremities Exam: Normal Inspection - Back Exam Back Exam: NORMAL INSPECTION - Neurological Exam Neurological Exam: Alert, Awake, CN II-XII Intact, Normal Gait, Oriented x3 Neuro motor strength exam: Left Upper Extremity: 5, Right Upper Extremity: 5, Left Lower Extremity: 5, Right Lower Extremity: 5 - Psychiatric Exam Psychiatric exam: Anxious, Normal Affect, Normal Mood Assessment and Plan - Assessment and Plan (Free Text) Assessment: Elevated troponins Admit to tele Initial troponin 0.1350, repeact negative x 2 EKG (09/27/17): Unchanged from prior - NSR @ 66 bpm, RBBB, ST segment depression in lead II, Q waves in III/AVF Dr. Garcia, b2b sales consultant, help greatly appreciated -ASA 81mg PO Daily Plavix 75mg PO Daily Losartan 100mg PO Daily f/u Echo Visual disturbance/? Occipital hyperdensity [place] [facility]17) - left AMA Fall risk protocol Brain MRI (09/27/17): No acute intracranial abnormality. Mild chronic microangiopathic changes and mild-age related global parenchymal volume loss. Dr. Garcia, Neurology senior market intelligence consultant - Conferred with Radiologist, Dr. Villegas, possible occipital venous stasis - start ASA 81mg PO daily, PLavix 75mg PO daily -MRI normal - MRA head/neck normal - f/u AYANNA level, Hypercoagulable work-up - Tchol 137, LDL 45, HDL 70, Trig 53 - TSH 0.71, free T4 0.99 - Muna D 30.5 Pitting B/l leg edema Albumin WNL f/u BNP, ECHO T2DM Accuchecks ACHS Hypoglycemia protocol Metformin 500mg PO Daily MISS f/u A1C Losartan 100mg PO Daily Start Crestor 10mg PO HS HTN well controlled Losartan 100mg PO Daily Norvasc 10mg PO daily Sarcoidosis Continue Prednisone 10mg PO Daily - pt states she has adrenal insufficiency because she "has been on for years" Hx of Hep C AST/ALT WNL Hep C reactive, will need outpatient treatment Cervical CA Diagnosed 2017 Patient reports having recent procedure for removal of part of cervix Chronic Pain - Spinal stenosis Fentanyl 75mg TD Patch Q72H Percocet Colace 100mg PO BID Anxiety Xanax 0.25mg PO Q6H for anxiety Obesity Low fat, heart healthy diet [facility] Corticosteroid use Pt at higher risk of osteoporosis Start Oscal 500mg MARA Uses CPAP at home - unaware of home settings Hx Gastric Bypass B12 - 456 Folate 11.6 Prophylaxis SCDs ASA/Plavix Hold Lovenox at this time GI not indicated PT/OT Medical management per Dr. Gaytan Patient is stable for discharge home. Patient is to follow up with Dr. Gaytan within one week of discharge. She is also to follow up with Neurology, Dr. Garcia , and cardiology, Dr. Garcia within one week of discharge for post hospital care. She is to resume all of her home medications as well as take aspirin, plavix, and crestor daily. Medications were sent to the patient's pharmacy: [facility]. All instructions explained to the patient. She is to return to the ER if symptoms return.
--- NOTE | 2017-09-28 14:32 | CARD ---
APPROVED REPORT EKG Measurement Heart [id number] <Conclusion> Normal sinus rhythm Right bundle branch block Inferior infarct, age undetermined Abnormal ECG
--- NOTE | 2017-09-28 19:47 | CARD ---
APPROVED REPORT EXAM: Two-dimensional and M-mode echocardiogram with Doppler and color Doppler. Other Information Quality : GoodRhythm : INDICATION CKD RISK FACTORS Hypertension 2D DIMENSIONS IVSd1.0 (0.7-1.1cm)LVDd4.6 (3.9-5.9cm) LVOT Diameter2.2 (1.8-2.4cm)PWd1.0 (0.7-1.1cm) LVDs2.1 (2.5-4.0cm)FS (%) 53.6 % LVEF (%)75.0 (>50%) M-Mode DIMENSIONS Left Atrium (MM)5.03 (2.5-4.0cm)Aortic Root3.69 (2.2-3.7cm) Aortic Cusp Exc.1.66 (1.5-2.0cm) Aortic Valve AoV Peak Dgchyeen473.3cm/sAoV VTI45.7cmAO Peak GR.20mmHg LVOT Peak Nmpzrzgy529.6cm/sLVOT VTI27.58cmAO Mean GR.11mmHg MINDI (VMAX)2.21bf9ZBX (VTI)2.35cm2 Mitral Valve MV E Tcwtpnrg015.6cm/sMV A Rbndqkuj637.8cm/sE/A ratio0.9 TDI E/Lateral E'0.0E/Medial E'0.0 Tricuspid Valve TR Peak Vpzxghqf582ga/sTR Peak Gr.44maDuEUTS12riMb LEFT VENTRICLE The left ventricle is normal size. There is mild concentric left ventricular hypertrophy. The left ventricular function is normal. The left ventricular ejection fraction is within the normal range. There is normal LV segmental wall motion. Transmitral Doppler flow pattern is Grade I-abnormal relaxation pattern. RIGHT VENTRICLE The right ventricle is normal size. There is normal right ventricular wall thickness. The right ventricular systolic function is normal. ATRIA The left atrium is moderately dilated. The right atrium size is normal. AORTIC VALVE The aortic valve is moderately thickened. There is mild aortic regurgitation. MITRAL VALVE The mitral valve is severly thickened. TRICUSPID VALVE There is moderate tricuspid regurgitation. There is moderate to severe pulmonary hypertension. GREAT VESSELS The aortic root is normal in size. PERICARDIAL EFFUSION There is no pericardial effusion. <Conclusion> The left ventricle is normal size. There is mild concentric left ventricular hypertrophy. The left ventricular function is normal. The left ventricular ejection fraction is within the normal range. There is normal LV segmental wall motion. Transmitral Doppler flow pattern is Grade I-abnormal relaxation pattern. There is mild aortic regurgitation. The mitral valve is severly thickened. There is moderate tricuspid regurgitation. There is moderate to severe pulmonary hypertension.
--- NOTE | 2017-09-30 02:33 | CARD ---
APPROVED REPORT EKG Measurement Heart [id number] <Conclusion> Normal sinus rhythm Right bundle branch block Inferior infarct, age undetermined Abnormal ECG
--- NOTE | 2017-09-30 02:36 | CARD ---
APPROVED REPORT EKG Measurement Heart [id number] <Conclusion> Normal sinus rhythm with sinus arrhythmia Right bundle branch block Inferior infarct, age undetermined Abnormal ECG
--- NOTE | 2017-09-30 08:07 | HP ---
HISTORY OF PRESENT ILLNESS: Ms. Zhong is a 62-year-old female with chief complaint of loss of vision. The patient came to the ER three times with similar complaints, advised admission. The patient hypertension, arthritis, diabetes. PHYSICAL EXAMINATION: GENERAL: The patient is awake, alert, oriented, and obese. VITAL SIGNS: Temperature 98 and pulse 90. HEENT: Within normal limits. NECK: Supple. CHEST: Symmetrical. HEART: Regular. ABDOMEN: Soft. EXTREMITIES: No edema ASSESSMENT AND PLAN: The patient suffers from cerebrovascular accident. The patient to get bedrest. Supportive care. Pedro Gaytan MD
[2017-10-03 07:16] LABS: CARDIOLIPIN AB (IGA) <11 APL (<=11); CARDIOLIPIN AB (IGG) <14 GPL (<=14); CARDIOLIPIN AB (IGM) <12 MPL (<=12); PHOSPHATIDYLSERINE AB IGG <10 U/mL (<10); PHOSPHATIDYLSERINE AB IGM <25 U/mL (<25)
[2017-10-03 22:25] LABS: B2 GLYCOPROTEIN I AB(IGA) <9 SAU (<=20); B2 GLYCOPROTEIN I AB(IGG) <9 SGU (<=20); B2 GLYCOPROTEIN I AB(IGM) <9 SMU (<=20); PHOSPHATIDYLSERINE AB IGA <20 U/mL (<20)
== END 2017-09-28 16:38 | disposition home or self-care (01) ==
LOC: C.ER 11:19 → C.9E 14:05 → C.6T 19:19
PROVIDERS: ADMIT Internal Medicine Pulmonary Disease; ATTEND Internal Medicine Pulmonary Disease
DX: H53.8 Other visual disturbances (principal); I25.10 Atherosclerotic heart disease of native coronary artery without angina pectoris; E78.00 Pure hypercholesterolemia, unspecified; Z85.41 Personal history of malignant neoplasm of cervix uteri; H54.7 Unspecified visual loss; Z86.718 Personal history of other venous thrombosis and embolism; E66.01 Morbid (severe) obesity due to excess calories; Z98.84 Bariatric surgery status; R51 Headache; D86.9 Sarcoidosis, unspecified; E11.22 Type 2 diabetes mellitus with diabetic chronic kidney disease; E66.9 Obesity, unspecified; F41.9 Anxiety disorder, unspecified; G47.33 Obstructive sleep apnea (adult) (pediatric); G89.29 Other chronic pain; M48.00 Spinal stenosis, site unspecified; I12.9 Hypertensive chronic kidney disease with stage 1 through stage 4 chronic kidney disease, or unspecified chronic kidney disease; M06.9 Rheumatoid arthritis, unspecified; N18.9 Chronic kidney disease, unspecified; Z79.52 Long term (current) use of systemic steroids; Z79.82 Long term (current) use of aspirin; Z79.84 Long term (current) use of oral hypoglycemic drugs
CPT/HCPCS: 36415; 70544; 70547; 70551; 80053; 80061; 80074; 81241; 82164; 82306; 82607; 82746; 82948; 83735; 83880; 84100; 84439; 84443; 84484; 85025; 85210; 85303; 85305; 85306; 85610; 85730; 86146; 86147; 86148; 86706; 93005; 93306; 96365; 96366; 97116; 97162; 97165; 97530; 99285; G0378; G8978; G8979; G8987; G8988; G8989; J3475